=== PATIENT | male | born 1990 | race Hispanic/Latino ===

== ENCOUNTER 2016-09-06 09:15 | Emergency (ER) | payer OTHER ==
[~2016-09-06] VITALS: Ht 175.3 cm; Wt 104.3 kg
[~2016-09-06 09:15] MED LIST: ADVAIR DISKUS1 UNIT INH; ALBUTEROL SULFAT3 M1 INH; ALBUTEROL0.09 MG/A1 INH; ALBUTEROL2.5 MG/3 M INH/SOL; AMOXIL 875 MG875 MG PO; BENADRYL ALLERG25 M1 PO; CLARITIN10 MG PO; ERY-TAB250 MG PO; MEDROL4 M2 PO; PREDNISONE 10MG10 M1 PO; PREDNISONE 20MG20 MG PO; PROAIR HFA8.5 GM INH; TESSALON PERLE100 MG PO
[2016-09-06 09:19] VITALS: BP 136/96
--- NOTE | 2016-09-06 09:23 | ED DYSPNEA/ASTHMA COMPLAINT ---
History of Present Illness General Chief Complaint: Wheezing/Asthma Stated Complaint: BIBA SOB Source: patient, old records, EMS Exam Limitations: no limitations Vital Signs & Intake/Output Vital Signs & Intake/Output Vital Signs Date Time Temp Pulse Resp B/P Pulse O2 O2 Flow FiO2 Ox Delivery Rate 09/06 0935 93 09/06 0919 96.2 64 18 136/96 95 Room Air Allergies Coded Allergies: NO KNOWN ALLERGIES (04/24/16) Triage Note: PT BIBA FROM HOME FOR ASTHMA. PER EMS O2 SATS 92% UPON ARRIVAL. PT GIVEN ONE NEB TX O2 SATS 98%. PT HAS +INSPIRATORY AND EXPIRATORY WHEEZES T/O LUNG BLACKWE[place] Triage Nurses Notes Reviewed? yes HPI: patient is a 26-year-old male with past medical history of asthma presents complaining of wheezing and dyspnea. Symptoms onset this morning when patient awoke from sleep. Wheezing was severe prior to arrival, improved with nebulizer treatment administered by EMS. Symptoms are currently moderate. Patient reports he has not required hospitalization previously for his asthma, has not been intubated. Patient cough, sputum production, chest pain, fevers, chills. Patient reports that he does not smoke cigarettes, but his mother whom he lives with those smoke cigarettes. (CHANELLE VARGAS) Reconcile Medications Albuterol Sulfate (Ventolin Hfa) 90 MCG HFA.AER.AD 2 PUF INH Q4-6 PRN PRN WHEEZING/SHORTNESS OF BREATH Methylprednisolone. (Medrol) 4 MG TAB.DS.PK 1 DP PO AD breathing (AMANDA CM,DEREK Mackey) Past History Travel History Traveled to [place] past 21 day No Medical History Any Pertinent Medical History? see below for history Neurological: NONE EENT: NONE Cardiovascular: NONE Respiratory: asthma Gastrointestinal: NONE Hepatic: NONE Renal: NONE Musculoskeletal: NONE Psychiatric: NONE Endocrine: NONE Blood Disorders: NONE Cancer(s): NONE ENERGY ASSISTANT/Reproductive: NONE History of CDIFF: No Surgical History Surgical History: DENIES Psychosocial History What is your primary language Salvadorean Tobacco Use: Quit >30 days ago ETOH Use: denies use Illicit Drug Use: denies illicit drug use Family History Hx Contributory? No (CHANELLE VARGAS) Review of Systems Review of Systems Constitutional: Denies: chills, fever. EENTM: Reports: no symptoms. Denies: nasal congestion, throat pain. Respiratory: Reports: see HPI. Cardiovascular: Denies: chest pain. GI: Denies: abdominal pain, nausea, vomiting. Genitourinary: Reports: no symptoms. Musculoskeletal: Reports: no symptoms. Skin: Reports: no symptoms. Neurological/Psychological: Reports: no symptoms. Hematologic/Endocrine: Reports: no symptoms. Immunologic/Allergic: Reports: no symptoms. (CHANELLE VARGAS) Physical Exam Physical Exam General Appearance: well developed/nourished, alert, awake Head: atraumatic, normal appearance Eyes: Bilateral: normal appearance, PERRL, EOMI. Ears, Nose, Throat: normal pharynx, normal ENT inspection, hearing grossly normal Neck: normal inspection, supple, full range of motion Respiratory: moderate diffuse expiratory wheezing. No accessory muscle use. Cardiovascular: regular rate/rhythm (no appreciable murmur) Extremities: normal inspection, normal capillary refill, normal range of motion Neurologic/Psych: no motor/sensory deficits, awake, alert, oriented x 3, normal gait, normal mood/affect Skin: intact, normal color, warm/dry Lymphatic: no anterior cervical suha Core Measures ACS in differential dx? No Severe Sepsis Present: No Septic Shock Present: No (CHANELLE VARGAS) Progress Differential Diagnosis: asthma, bronchitis, pulmonary embolism, pneumonia, pneumothorax Plan of Care: Current Medications Sig/Corrie Start time Last Medication Dose Stop Time Status Admin Albuterol Sulfate 3 ML ONCE ONE 09/06 929 UNVr (Proventil) 09/06 930 Ipratropium [place] 2.5 ML ONCE ONE 09/06 929 UNVr (Atrovent) 09/06 93009/06/2016 9:51:22 AM: Lung sounds significantly improved after nebulizer treatment. Patient resting comfortably, no apparent respiratory distress. Appears stable for discharge. (CHANELLE VARGAS) Initial ED EKG: none (CHANELLE VARGAS) Departure Departure Time of Disposition: 950 Disposition: HOME OR SELF CARE Condition: Stable Clinical Impression Primary Impression: Asthma exacerbation Referrals: ED [facility] DO PATIENT HAS NO PRIMARY CARE DR (PCP/Family) VINEET MEJIA MD Additional Instructions: Follow-up with one of the [facility] practice physicians to establish a doctor and for further evaluation. Call tomorrow for appointment. Return to the emergency department if breathing worsening or worsening of symptoms. Departure Forms: Customer Survey General Discharge Information Prescriptions: Current Visit Scripts Albuterol Sulfate (Ventolin Hfa) 2 PUF INH Q4-6 PRN PRN WHEEZING/SHORTNESS OF BREATH #1 INHAL Methylprednisolone. (Medrol) 1 DP PO AD #1 DP (CHANELLE VARGAS) PA/MACHINIST MECHANIC Co-Sign Statement Statement: ED Attending supervision documentation- [] I saw and evaluated the patient. I have also reviewed all the pertinent lab results and diagnostic results. I agree with the findings and the plan of care as documented in the PA's/MACHINIST MECHANIC's documentation. [X] I have reviewed the ED Record and agree with the PA's/MACHINIST MECHANIC's documentation. [] Additions or exceptions (if any) to the PAs/MACHINIST MECHANIC's note and plan are summarized below: [] (AMANDA CM,DEREK Mackey) Critical Care Note Critical Care Note Critical Care Time: non-applicable (CHANELLE VARGAS)
[2016-09-06] MEDS ORDERED: MEDROL4 M2 PO (09:52)
[2016-09-06] MEDS ORDERED: VENTOLIN HFA18 GM INH (09:52)
== END 2016-09-06 10:08 ==
LOC: ERH 09:15
DX: J45.901 Unspecified asthma with (acute) exacerbation (principal); Z87.891 Personal history of nicotine dependence
CPT/HCPCS: 1263